=== PATIENT | male | born 1985 | race African-American/Black ===

== ENCOUNTER 2023-05-14 15:08 | Inpatient (IN) | payer BC, SELFPAY ==
--- NOTE | 2023-05-14 15:25 | CT_ITS ---
PROCEDURE INFORMATION: Exam: CT Abdomen And Pelvis With Contrast Exam date and time: 05/14/2023 6:49 PM Age: 37 years old Clinical indication: Generalized; Patient HX: Upper abdominal pain since Friday night. TECHNIQUE: Imaging protocol: Computed tomography of the abdomen and pelvis with contrast. Radiation optimization: All CT scans at this facility use at least one of these dose optimization techniques: automated exposure control; mA and/or kV adjustment per patient size (includes targeted exams where dose is matched to clinical indication); or iterative reconstruction. Contrast material: ISOVUE; Contrast volume: 75 ml; Contrast route: IV; Other contrast: Oral, gastrograffin, 30mL; COMPARISON: CR [id number] XR lumbar spine min 4V 02/07/2018 11:09 AM FINDINGS: Lungs: Lung bases are clear. Liver: Normal. No mass. Gallbladder and bile ducts: Gallbladder is distended with associated wall thickening associated severe right upper quadrant region edema and stranding centered around the gallbladder suggesting gallbladder origin. Pancreas: Normal. No ductal dilation. Spleen: Normal. No splenomegaly. Adrenal glands: Normal. No mass. Kidneys and ureters: Normal. No hydronephrosis. Stomach and bowel: Unremarkable. No obstruction. No mucosal thickening. Appendix: No evidence of appendicitis. Intraperitoneal space: Unremarkable. No free air. No significant fluid collection. Vasculature: Unremarkable. No abdominal aortic aneurysm. Lymph nodes: Unremarkable. No enlarged lymph nodes. Urinary bladder: Unremarkable as visualized. Reproductive: Unremarkable as visualized. Bones/joints: Unremarkable. No acute fracture. Soft tissues: Unremarkable. IMPRESSION: Distended gallbladder with wall thickening and right upper quadrant region inflammatory changes most consistent with severe acute cholecystitis in the proper clinical setting.
[2023-05-14 15:35] VITALS: BMI 38.7
[2023-05-14 15:38] VITALS: BP 144/84; PULSE 75; RESP 22; TEMP 36.7; O2SAT 97
[2023-05-14] MEDS: MORPHINE 2MG/ML SYRINGE 2 MG IV ×2 (16:14→18:34)
[2023-05-14] MEDS: 0.9 % SODIUM CHLORIDE 1000ML 1,000 ML 999 ML IV (16:14)
[2023-05-14 16:22] LABS: Basophils % 0.2 % (0.1-2.0); Eosinophils # 0.3 K/mm3 (0.0-0.4); Eosinophils % 1.9 % (0.1-12.0); Hematocrit 53.9 % (42.0-52.0); Hemoglobin 17.1 g/dL (14.1-18.0); Lymphocytes # 1.2 K/mm3 (0.7-4.5); Lymphocytes % 7.7 % (10-50); Mean Corpuscular HGB Conc 31.8 g/dL (31.8-35.4); Mean Corpuscular Hemoglobin 27.4 pg (27.0-31.2); Mean Corpuscular Volume 86.3 fl (80-94); Mean Platelet Volume 7.6 fl (7.4-10.4); Monocytes # 0.7 K/mm3 (0.1-1.0); Monocytes % 4.7 % (1.7-9.3); Neutrophils # 13.4 K/mm3 (1.8-7.8); Neutrophils % 85.5 % (37.0-80.0); Platelet Count 278 K/mm3 (142-424); Red Blood Count 6.24 M/mm3 (4.60-6.20); Red Cell Distribution Width 14.9 % (11.5-17.5); White Blood Count 15.7 K/mm3 (4.8-10.8)
[2023-05-14 16:28] LABS: Chloride 98 mmol/L (98-107); MANUAL DIFFERENTIAL MANUAL DIFFERENTIAL (MANUAL DIFF); Potassium 4.7 mmoL/L (3.5-5.1); Sodium 134 mmol/L (136-145)
[2023-05-14 16:30] LABS: Alanine Aminotransferase 44 U/L (12-78); Amylase 61 U/L (30-110); Blood Urea Nitrogen 14 mg/dl (9-20); Creatinine Clearance Estimated 152 mL/min (50-200); Estimated Glomerular Filt Rate 76 ml/min (>60); GFR (African American) 92 ML/MIN (>60)
[2023-05-14 16:31] LABS: Albumin Level 4.9 g/dl (3.5-5.0); Albumin/Globulin Ratio 1.3 (1.1-1.8); Alkaline Phosphatase 94 U/L (38-126); Anion Gap 8.7 mEq/L (5-15); Aspartate Amino Transferase 49 U/L (17-59); Bilirubin,Total 1.3 mg/dl (0.2-1.3); Calcium 10.4 mg/dl (8.4-10.2); Carbon Dioxide 32 mmol/L (22.0-30.0); Globulin 3.8 g/dL (1.3-3.2); Glucose 117 mg/dl (74-100); Total Protein,Serum 8.7 g/dl (6.3-8.2)
[2023-05-14 16:32] LABS: Lactic Acid 1.4 mmol/L (0.7-2.1)
[2023-05-14 16:53] LABS: Lipase 38 U/L (23-300)
--- NOTE | 2023-05-14 17:25 | P.HP_ITS ---
History of Present Illness *Admission Date: 05/14/23 *Reason for visit:: abdominal pain *History of present illness: Mr. Song is a 37yo male who presented to the office of [facility] today with abdominal pain that started on Friday. He did vomit and have diarrhea on Friday, but this resolved on Friday. He began getting pain in the epigastric area yesterday and it is so bad today he cannot stand upright. He states it hurts to breathe and he has been doubled over in pain most of today. He has been unable to eat. His WBC was elevated in the office and he was admitted for further evaluation and treatment. [facility] Disclaimer: The information contained in this section may have been updated after the patient was seen, as this information can be updated by other users. Medical History (Updated 05/14/23 @ 19:56 by Clinton Garcia MD) No significant past medical history Family History Family history of hypertension Mother Father Family history of diabetes mellitus type II Mother Father Social History Smoking Status: Never smoker alcohol intake: current substance use type: denies use current occupational status: employed Travel in the last 8 weeks: Inside the [place] housing: house Review of Systems Constitutional Constitutional: Reports fatigue, Denies headache(s) and Reports weakness Eyes Eyes: Denies blurry vision and Denies diplopia ENT Ears, Nose, Mouth, and Throat: Denies headache(s), Denies nasal congestion, Denies sore throat and Denies vertigo *Cardiovascular Cardiovascular: Denies chest pain, Denies dyspnea and Denies leg edema *Respiratory Respiratory: Denies cough and Denies dyspnea *Gastrointestinal Gastrointestinal: Reports abdominal pain (epigastric), Reports loose stools, Reports nausea and Reports vomiting *Genitourinary Genitourinary: Denies difficulty urinating and Denies dysuria *Musculoskeletal Musculoskeletal: Denies arthralgias and Denies myalgias *Neurologic Neurologic: Denies headache(s), Denies vertigo and Reports weakness Endocrine Endocrine: Reports fatigue Meds Home Medications and Allergies Home Medications Medication Instructions Recorded Confirmed Type No Known Home Medications 11/12/18 05/14/23 History New Prescriptions to Start Prescriptions: Allergies Allergy/AdvReac Type Severity Reaction Status Date / Time No Known Allergies Allergy Verified 05/14/23 15:29 Exam Data for Last 24 hours Vital signs and Labs for Last 24 Hours: Temp Pulse Resp BP Pulse Ox O2 Del Method 98.1 F 75 22 144/84 H 97 Room Air 05/14/23 15:38 05/14/23 15:38 05/14/23 15:38 05/14/23 15:38 05/14/23 15:38 05/14/23 17:15 Laboratory Results - last 24 hr 05/14/23 16:06: WBC 15.7 H, RBC 6.24 H, Hgb 17.1, Hct 53.9 H, MCV 86.3, MCH 27.4, MCHC 31.8, RDW 14.9, Plt Count 278, MPV 7.6, Neut % (Auto) 85.5 H, Lymph % (Auto) 7.7 L, [place] % (Auto) 4.7, Eos % (Auto) 1.9, Baso % (Auto) 0.2, Neut # (Auto) 13.4 H, Lymph # (Auto) 1.2, [place] # (Auto) 0.7, Eos # (Auto) 0.3, Baso # (Auto) 0.0, Sodium 134 L, Potassium 4.7, Chloride 98, Carbon Dioxide 32 H, Anion Gap 8.7, BUN 14, Creatinine 1.10, Estimated Creat Clear 152, Estimated GFR 76, Est GFR ( Amer) 92, Glucose 117 H, Lactate 1.4, Calcium 10.4 H, Total Bilirubin 1.3, AST 49, ALT 44, Alkaline Phosphatase 94, Total Protein 8.7 H, Albumin 4.9, Globulin 3.8 H, Albumin/Globulin Ratio 1.3, Amylase 61, Lipase 38 I & O for Last 24 hours: Intake & Output 05/12/23 05/13/23 05/14/23 05/15/23 11:59 11:59 11:59 11:59 Weight 254 lb 7 oz Constitutional Constitutional: moderate distress (appears to be in pain) *Routine HEENT Exam Head: Present normocephalic and atraumatic Eye: Present EOMI and PERRL ENT: Present mucous membranes dry *Routine Neck Exam Neck: Present supple and full ROM *Routine Respiratory Exam Respiratory: Present CTA bilaterally *Routine Cardiovascular Exam Cardiovascular: Present RRR *Routine Abdominal Exam Abdominal: Present soft, normoactive bowel sounds and tenderness (epigastric area) *Routine Rectal Exam Rectal:: deferred *Routine Genitalia Exam Genitalia:: deferred *Routine Extremities Exam Extremities: Absent cyanosis, clubbing or edema *Routine Skin Exam Skin: Present intact; Absent erythema *Routine Neurological Exam Neurological: Present alert and oriented X3 Assessment and Plan *Assessment and plan (1) Epigastric abdominal pain: Status: Acute Category: Medical Code(s): R10.13 - Epigastric pain (2) Leukocytosis: Status: Acute Category: Medical Code(s): D72.829 - Elevated white blood cell count, unspecified (3) Acute cholecystitis: Status: Acute Category: Medical Code(s): K81.0 - Acute cholecystitis Plan Patient has been started on morphine, zofran, and IVF's. A CT scan has been ordered. WBC is elevated. Will discuss further care with Dr. Garcia. Dr. Garcia entry - Saw patient in office and after admission to [facility] CT scan shows probable acute cholecystitis. Will keep NPO, start Zosyn, RUQ U/S ordered, consult general surgery in the morning.
[2023-05-14 17:44] LABS: Lymphocytes % 13 % (10-50); Monocytes % 5 % (2-9); Neutrophils % 82 % (42-76); Total Cells Counted 100
[2023-05-14 17:45] LABS: Platelet Estimate Normal; RBC Morphology Normal
--- NOTE | 2023-05-14 18:57 | PC.NURSE ---
NOTIFIED MD OF PTS ABD PAIN RATING IT 10/10. PER MARLY, OKAY TO GIVE PRN MORPHINE EARLY. PT CURRENTLY DOWN TO RAD. URINE SPECIMEN OBTAINED AND SENT TO LAB. PTS FAMILY AT BS, NO COMPLAINTS VOICED AT THIS TIME.
[2023-05-14] MEDS: IOPAMIDOL-370 (76%);100ML BOTTLE 75 ML IV (19:10)
[2023-05-14] MEDS: SODIUM CHLORIDE 0.9% 10ML SYR (RAD ONLY) 10 ML IV (19:12)
[2023-05-14] MEDS: DIATRIZOATE MEGLUMINE(GASTROGRAFIN) 66%-10% 120ML 20 ML PO (19:12)
[2023-05-14 20:00] VITALS: BP 135/75; PULSE 82; RESP 17; TEMP 36.8; O2SAT 98
--- NOTE | 2023-05-14 20:13 | PC.NURSE ---
called about this exam and told the nurse that we usually dont call u/s in for these and that we would have a tech here around 630 am and she said that would be fine to have the exam then.
[2023-05-14] MEDS: D5W/0.45% NaCl w/20mEq KCL 1,000 ML 125 ML IV (20:55)
[2023-05-14] MEDS: FAMOTIDINE 20MG TABLET 20 MG PO (20:55)
[2023-05-14] MEDS: PIPERACILLIN/TAZO 4.5 GM in 0.9 % SODIUM CHLORIDE 100 ML IV (20:56)
[2023-05-14] MEDS: MORPHINE 2MG/ML SYRINGE 4 MG IV (20:57)
[2023-05-15] VITALS (21 sets, daily range): BP systolic 115–152; BP diastolic 67–92; PULSE 69–109; RESP 14–23; TEMP 36.6–37.7; O2SAT 93–100; BMI 39.9
--- NOTE | 2023-05-15 | US_ITS ---
FINAL REPORT CLINICAL HISTORY: ruq pain -- recent CT COMPARISON: CT dated 05/14/2023 FINDINGS: Sonographic images of the right upper quadrant were obtained. Study is somewhat limited by large amount of bowel gas and the suggestion of some stranding or haziness in the right upper quadrant. The pancreas is partially obscured. There is fatty infiltration of the liver. Stones and sludge are present in the gallbladder. There is no evidence of biliary ductal dilatation.The common duct measures 4mm. Limited images of the right kidney are unremarkable. IMPRESSION: Fatty infiltration of the liver. Stones and sludge are present in the gallbladder without evidence of ductal dilatation. Reviewed, Interpreted and Dictated by Vasquez La MD Transcribed by Elvi Duran Authenticated and . [facility]
[2023-05-15] MEDS: PIPERACILLIN/TAZO 4.5 GM in 0.9 % SODIUM CHLORIDE 100 ML IV ×4 (01:18→20:06)
[2023-05-15] MEDS: MORPHINE 2MG/ML SYRINGE 4 MG IV ×5 (01:19→21:44)
[2023-05-15] MEDS: D5W/0.45% NaCl w/20mEq KCL 1,000 ML 125 ML IV ×2 (06:12→21:44)
--- NOTE | 2023-05-15 07:31 | EXP.SURG.CON ---
History of Present Illness *Admission Date: 05/14/23 *Reason for visit:: Acute cholecystitis *History of present illness: Patient is a 37-year-old male. He had presented to [facility] office on 05/14/2023 with abdominal pain that began on 05/10/2023. He had nausea and vomiting. He did initially have some loose stools which had resolved. Describes severe pain in the epigastrium which doubles him over. He had been unable to eat. He was admitted for inpatient management as he was found to have a leukocytosis on outpatient labs. Surgical consultation was obtained for acute cholecystitis. He had a CT scan of the abdomen and pelvis performed which revealed distended gallbladder with wall thickening and right upper quadrant region inflammatory changes most consistent with severe acute cholecystitis in the proper clinical setting. He has an ultrasound pending. He is on Zosyn. [facility] Disclaimer: The information contained in this section may have been updated after the patient was seen, as this information can be updated by other users. Medical History (Updated 05/14/23 @ 19:56 by Clinton Garcia MD) No significant past medical history Family History Family history of hypertension Mother Father Family history of diabetes mellitus type II Mother Father Social History Smoking Status: Never smoker alcohol intake: current substance use type: denies use current occupational status: employed Travel in the last 8 weeks: Inside the [facility] housing: house Review of Systems Constitutional Constitutional: Denies headache(s) and Reports weakness ENT Ears, Nose, Mouth, and Throat: Denies headache(s) and Denies vertigo *Neurologic Neurologic: Denies headache(s), Denies vertigo and Reports weakness Meds Home Medications and Allergies Home Medications Medication Instructions Recorded Confirmed Type No Known Home Medications 11/12/18 05/14/23 History New Prescriptions to Start Prescriptions: Allergies Allergy/AdvReac Type Severity Reaction Status Date / Time No Known Allergies Allergy Verified 05/14/23 15:29 Exam (Inpt) Vital signs and Labs for Last 24 Hours: Temp Pulse Resp BP Pulse Ox O2 Del Method 99.8 F H 88 16 136/73 96 Room Air 05/15/23 04:00 05/15/23 04:00 05/15/23 04:00 05/15/23 04:00 05/15/23 04:00 05/15/23 06:25 Laboratory Results - last 24 hr 05/14/23 16:06: WBC 15.7 H, RBC 6.24 H, Hgb 17.1, Hct 53.9 H, MCV 86.3, MCH 27.4, MCHC 31.8, RDW 14.9, Plt Count 278, MPV 7.6, Neut % (Auto) 85.5 H, Lymph % (Auto) 7.7 L, [place] % (Auto) 4.7, Eos % (Auto) 1.9, Baso % (Auto) 0.2, Neut # (Auto) 13.4 H, Lymph # (Auto) 1.2, [place] # (Auto) 0.7, Eos # (Auto) 0.3, Baso # (Auto) 0.0, Total Counted 100, Neutrophils % (Manual) 82 H, Lymphocytes % (Manual) 13, Monocytes % (Manual) 5, Platelet Estimate Normal, RBC Morphology Normal, Sodium 134 L, Potassium 4.7, Chloride 98, Carbon Dioxide 32 H, Anion Gap 8.7, BUN 14, Creatinine 1.10, Estimated Creat Clear 152, Estimated GFR 76, Est GFR ( Amer) 92, Glucose 117 H, Lactate 1.4, Calcium 10.4 H, Total Bilirubin 1.3, AST 49, ALT 44, Alkaline Phosphatase 94, Total Protein 8.7 H, Albumin 4.9, Globulin 3.8 H, Albumin/Globulin Ratio 1.3, Amylase 61, Lipase 38 I & O for Labs for Last 24 Hours: Intake & Output 05/12/23 05/13/23 05/14/23 05/15/23 11:59 11:59 11:59 11:59 Intake Total 30 / 30 Output Total 0 / 0 Balance / Weight 263 lb 14.4 oz Constitutional: no acute distress Head: Present normocephalic Respiratory: Present CTA bilaterally Cardiac: Present Reg Rate and Rhythm GI: Present soft, tenderness and Mejia's sign Comments:: He has tenderness with guarding in the epigastrium and right upper quadrant Rectal (male): Present deferred Results Labs 05/14/23 16:06 05/14/23 16:06 Labs: Laboratory Results - last 24 hr 05/14/23 16:06: WBC 15.7 H, RBC 6.24 H, Hgb 17.1, Hct 53.9 H, MCV 86.3, MCH 27.4, MCHC 31.8, RDW 14.9, Plt Count 278, MPV 7.6, Neut % (Auto) 85.5 H, Lymph % (Auto) 7.7 L, [place] % (Auto) 4.7, Eos % (Auto) 1.9, Baso % (Auto) 0.2, Neut # (Auto) 13.4 H, Lymph # (Auto) 1.2, [place] # (Auto) 0.7, Eos # (Auto) 0.3, Baso # (Auto) 0.0, Total Counted 100, Neutrophils % (Manual) 82 H, Lymphocytes % (Manual) 13, Monocytes % (Manual) 5, Platelet Estimate Normal, RBC Morphology Normal, Sodium 134 L, Potassium 4.7, Chloride 98, Carbon Dioxide 32 H, Anion Gap 8.7, BUN 14, Creatinine 1.10, Estimated Creat Clear 152, Estimated GFR 76, Est GFR ( Amer) 92, Glucose 117 H, Lactate 1.4, Calcium 10.4 H, Total Bilirubin 1.3, AST 49, ALT 44, Alkaline Phosphatase 94, Total Protein 8.7 H, Albumin 4.9, Globulin 3.8 H, Albumin/Globulin Ratio 1.3, Amylase 61, Lipase 38 Assessment and Plan *Assessment and plan (1) Acute cholecystitis: Status: Acute Category: Medical Code(s): K81.0 - Acute cholecystitis Plan Patient has findings consistent with significant acute cholecystitis. I explained him the nature of the condition. Discussed options with him. Arrangements will be made for expeditious cholecystectomy. Plan for laparoscopic possibly open cholecystectomy. I explained to him the nature and details of the proposed procedure along with the associated risks and expected outcome. He understands and agrees to proceed.
[2023-05-15] MEDS: FAMOTIDINE 20MG TABLET 20 MG PO ×2 (08:15→20:06)
--- NOTE | 2023-05-15 08:23 | P.PN_ITS ---
Subjective *Date: 05/15/23 *Time: 08:56 Interval history: Patient was able to rest at intervals after getting pain medication. He is still having a lot of epigastric and RUQ pain today. CT shows severe acute cholecystitis. Medical Exam Vital signs and Labs for Last 24 Hours: Vital Signs Temp Pulse Resp BP Pulse Ox O2 Del Method 05/15/23 07:50 97.9 F 69 23 122/76 97 Room Air 05/15/23 06:25 Room Air 05/15/23 05:00 Room Air 05/15/23 04:00 99.8 F H 88 16 136/73 96 Room Air 05/15/23 03:00 Room Air 05/15/23 00:59 Room Air 05/14/23 23:00 Room Air 05/14/23 21:00 Room Air 05/15/23 00:00 98.6 F 95 H 16 145/88 H 100 Room Air 05/14/23 20:00 98.2 F 82 17 135/75 98 Room Air 05/14/23 18:41 Room Air 05/14/23 17:15 Room Air 05/14/23 17:00 Room Air 05/14/23 15:38 98.1 F 75 22 144/84 H 97 Room Air Intake and Output 05/14/23 05/15/23 05/15/23 19:59 03:59 11:59 Intake Total 0 / 30 30 / 30 0 / 30 Output Total 0 / 0 0 / 0 Balance 0 / 30 30 / 30 0 / 30 Intake: Intake, Oral Amount 0 / 30 30 / 30 0 / 30 Output: Output, Urine Amount 0 / 0 0 / 0 Other: Number of Voids 2 Number of Unmeasured Voids 1 1 Weight 254 lb 7 oz 263 lb 14.4 oz Patient Weight 05/15/23 11:59 Weight 263 lb 14.4 oz Laboratory Results - last 24 hr 05/14/23 16:06: WBC 15.7 H, RBC 6.24 H, Hgb 17.1, Hct 53.9 H, MCV 86.3, MCH 27.4, MCHC 31.8, RDW 14.9, Plt Count 278, MPV 7.6, Neut % (Auto) 85.5 H, Lymph % (Auto) 7.7 L, [place] % (Auto) 4.7, Eos % (Auto) 1.9, Baso % (Auto) 0.2, Neut # (Auto) 13.4 H, Lymph # (Auto) 1.2, [place] # (Auto) 0.7, Eos # (Auto) 0.3, Baso # (Auto) 0.0, Total Counted 100, Neutrophils % (Manual) 82 H, Lymphocytes % (Manual) 13, Monocytes % (Manual) 5, Platelet Estimate Normal, RBC Morphology Normal, Sodium 134 L, Potassium 4.7, Chloride 98, Carbon Dioxide 32 H, Anion Gap 8.7, BUN 14, Creatinine 1.10, Estimated Creat Clear 152, Estimated GFR 76, Est GFR ( Amer) 92, Glucose 117 H, Lactate 1.4, Calcium 10.4 H, Total Bilirubin 1.3, AST 49, ALT 44, Alkaline Phosphatase 94, Total Protein 8.7 H, Albumin 4.9, Globulin 3.8 H, Albumin/Globulin Ratio 1.3, Amylase 61, Lipase 38 I & O for Labs for Last 24 Hours: Intake & Output 05/12/23 05/13/23 05/14/23 05/15/23 11:59 11:59 11:59 11:59 Intake Total Output Total 0 / 0 Balance Weight 263 lb 14.4 oz Constitutional: Present mild distress Respiratory: Present CTA bilaterally Cardiac: Present Reg Rate and Rhythm GI: Present soft, tenderness (epigastric area and RUQ), guarding (RUQ) and normal bowel sounds; Absent distention Extremities: Absent edema, clubbing or cyanosis Skin: Present intact Neuro: Present alert and awake Assessment and Plan *Assessment and plan (1) Acute cholecystitis: Status: Acute Category: Medical Code(s): K81.0 - Acute cholecystitis (2) Leukocytosis: Status: Acute Category: Medical Code(s): D72.829 - Elevated white blood cell count, unspecified (3) Epigastric abdominal pain: Status: Acute Category: Medical Code(s): R10.13 - Epigastric pain Plan Dr. Vila has seen the patient. Will keep NPO, continue Zosyn, and get a RUQ U/S. Will likely have cholecystectomy today. Dr. Garcia entry - Saw patient, agree with above note.
[2023-05-15 10:09] LABS: Basophils % 0.1 % (0.1-2.0); Eosinophils # 0.1 K/mm3 (0.0-0.4); Eosinophils % 0.6 % (0.1-12.0); Hematocrit 49.7 % (42.0-52.0); Hemoglobin 16.1 g/dL (14.1-18.0); Lymphocytes # 1.5 K/mm3 (0.7-4.5); Lymphocytes % 9.9 % (10-50); Mean Corpuscular HGB Conc 32.5 g/dL (31.8-35.4); Mean Corpuscular Hemoglobin 27.9 pg (27.0-31.2); Mean Corpuscular Volume 85.8 fl (80-94); Mean Platelet Volume 7.3 fl (7.4-10.4); Monocytes # 0.9 K/mm3 (0.1-1.0); Monocytes % 5.6 % (1.7-9.3); Neutrophils % 83.8 % (37.0-80.0); Platelet Count 232 K/mm3 (142-424); Red Blood Count 5.79 M/mm3 (4.60-6.20); Red Cell Distribution Width 14.8 % (11.5-17.5); White Blood Count 15.6 K/mm3 (4.8-10.8)
[2023-05-15 10:13] LABS: MANUAL DIFFERENTIAL MANUAL DIFFERENTIAL (MANUAL DIFF)
[2023-05-15 10:20] LABS: Alanine Aminotransferase 52 U/L (12-78); Albumin/Globulin Ratio 1.1 (1.1-1.8); Alkaline Phosphatase 94 U/L (38-126); Anion Gap 10.5 mEq/L (5-15); Aspartate Amino Transferase 50 U/L (17-59); Bilirubin,Total 2.5 mg/dl (0.2-1.3); Blood Urea Nitrogen 12 mg/dl (9-20); Calcium 8.9 mg/dl (8.4-10.2); Carbon Dioxide 29 mmol/L (22.0-30.0); Chloride 100 mmol/L (98-107); Creatinine Clearance Estimated 144 mL/min (50-200); Estimated Glomerular Filt Rate 69 ml/min (>60); GFR (African American) 83 ML/MIN (>60); Globulin 3.5 g/dL (1.3-3.2); Glucose 111 mg/dl (74-100); Potassium 4.5 mmoL/L (3.5-5.1); Sodium 135 mmol/L (136-145); Total Protein,Serum 7.5 g/dl (6.3-8.2)
[2023-05-15 11:06] LABS: Lymphocytes % 10 % (10-50); Monocytes % 7 % (2-9); Neutrophils % 83 % (42-76); Total Cells Counted 100
[2023-05-15 11:08] LABS: Platelet Estimate Normal; RBC Morphology Normal
--- NOTE | 2023-05-15 12:31 | EXP.ANES.CKL ---
[facility] Disclaimer: The information contained in this section may have been updated after the patient was seen, as this information can be updated by other users. Medical History (Updated 05/14/23 @ 19:56 by Clinton Garcia MD) No significant past medical history Family History Family history of hypertension Mother Father Family history of diabetes mellitus type II Mother Father Social History Smoking Status: Never smoker alcohol intake: current substance use type: denies use current occupational status: employed Travel in the last 8 weeks: Inside the [place] housing: house [facility] Anesthesia Checklist Patient Identification Patient Identification: Arm Band, Family () and Verbal (Name & ) Structural Data Admitted From: Inpatient (RM [id number]) Planned Operative Procedure/s: Lap Nette Consent for Planned Operative Procedure(s) Verified: Yes Verified Documents: Surgical Consent and History and Physical NPO Status Verified Time NPO: 07:00 Chart Verification Results Verified: CBC and BMP Additional verifications Patient : No Anesthesia Reactions: No Cardiovascular Assessment Heart Sounds: S1 & S2 Pulse Rhythm: Irregular Peripheral Edema: No Airway Assessment Mallampati Score:: Class II C-Spine Mobility Assessed: Yes (FROM) TMJ Mobility Assessed: Yes Dentition: Good Dentition (Nothing loose per pt.) Neurological Assessment Level of Consciousness: Awake, Alert, Appropriate and Follows Commands Hx Seizures: No Numbness or tingling in extremities: No Anesthesia Plan Anesthesia Risk discussed: Yes Anesthesia Plan: Verified ASA Class: III Anesthesia Type: General
[2023-05-15] MEDS: LIDOCAINE 1% 20ML MDV 20 ML (12:52)
[2023-05-15] MEDS: ROPIVACAINE 0.5% 30ML VIAL 150 MG (12:52)
[2023-05-15] MEDS: CEFAZOLIN 1GM VIAL 2 GM (13:00)
[2023-05-15] MEDS: 0.9 % SODIUM CHLORIDE 100 ML IV (13:00)
--- NOTE | 2023-05-15 15:22 | XR_ITS ---
FINAL REPORT CLINICAL HISTORY: CHOLANGIOGRAM IN OR ft: 1:16 62.75 mGy FINDINGS: FLUOROSCOPY LESS THAN 1 HOUR HISTORY: Intraoperative cholangiogram FINDINGS: Fluoroscopic guidance was provided for intraoperative cholangiogram injection. Three spot films were obtained. 1 minute 16 seconds seconds of fluoroscopy time were used. Radiation measured as 62.75 mGy. IMPRESSION: As above. Reviewed, Interpreted and Dictated by Vasquez La MD Transcribed by Elvi Duran Authenticated and [facility]
--- NOTE | 2023-05-15 16:44 | EXP.OP.NOTE ---
Date of procedure: 05/15/23 Pre-op Diagnosis:: Acute cholecystitis Post-op Diagnosis:: Severe acute necrotizing cholecystitis Procedure performed:: Laparoscopic cholecystectomy with intraoperative cholangiogram Surgeon:: Jay Vila MD Anesthesia: FÁTIMA Estimated blood loss (mL): 75 Clinical Note:: Patient is a 37-year-old male. He had presented to [facility] office on 05/14/2023 with abdominal pain that began on 05/10/2023. He had nausea and vomiting. He did initially have some loose stools which had resolved. Describes severe pain in the epigastrium which doubles him over. He had been unable to eat. He was admitted for inpatient management as he was found to have a leukocytosis on outpatient labs. Surgical consultation was obtained for acute cholecystitis. He had a CT scan of the abdomen and pelvis performed which revealed distended gallbladder with wall thickening and right upper quadrant region inflammatory changes most consistent with severe acute cholecystitis in the proper clinical setting. He was started on Zosyn. Surgical consultation was obtained. Patient had findings clinically of significant acute cholecystitis. He did undergo gallbladder ultrasound which revealed fatty infiltration of liver. Stones and sludge are present in the gallbladder without evidence of ductal dilatation. Options were discussed with the patient. Plan was made to proceed with relatively urgent laparoscopic possibly open cholecystectomy. Of note, on the morning of his planned surgery the bilirubin did increase to 2.5 with remaining liver function test normal. Ultrasound showed no evidence of any ductal dilatation. This was felt to be likely secondary to gallbladder distention and inflammation and not common duct issue. Operative findings:: Patient had a severe necrotizing gangrenous acute cholecystitis essentially with virtually phlegmonous reaction in the right upper quadrant. Gallbladder neck appeared to be somewhat twisted. There was full-thickness necrosis. Due to the severely distorted anatomy intraoperative cholangiogram was performed which preliminarily did not show any definite common hepatic or common bile duct obstruction. However interestingly the cystic duct was not clearly visualized. Operative note:: Patient was taken to the operating room. He was given preoperative intravenous antibiotics in addition to the ongoing Zosyn for treatment for acute cholecystitis. In the operating room he was placed in a supine position. General anesthesia was induced via endotracheal tube. His abdomen was prepped and draped in the standard surgical fashion. Subumbilical skin incision was made and while performing abdominal wall lift Veress needle was inserted. CO2 pneumoperitoneum was achieved to 15 mmHg. 11 mm optical trocar was inserted at the umbilicus. Intraperitoneal contents were visualized. He was positioned in reverse Trendelenburg and left side down. A couple of 5 mm trocars were inserted in the right upper abdomen. 10 mm trocar was inserted in the epigastrium. Visualization of the gallbladder was not possible initially as the gallbladder was completely obscured with omental adhesions. There was an intense inflammatory phlegmonous process in the right upper quadrant. Omentum was swept inferiorly and the fundus of the gallbladder was identified. There was evidence of severe acute cholecystitis with patchy necrosis. Gallbladder was grasped and retracted anteriorly. Extremely prolonged dissection was carried out with dissection carried down to the neck of the gallbladder. There were areas of complete full-thickness virtually liquefied necrosis. There was some unavoidable spillage of bile from the body of the gallbladder during retraction due to the full-thickness necrosis. This was suctioned free. Was was closed with a PDS Endoloop. Extremely prolonged dissection was carried out the neck of the gallbladder as delineation of the anatomy was virtually impossible initially. It appeared as though the neck of the gallbladder was twisted and somewhat corkscrew did with full-thickness necrosis. Ultimately what appeared to be the cystic duct was identified. Prolonged thorough careful dissection was carried out isolating this. Decision was made to perform intraoperative cholangiogram. The duct, once isolated, was clipped proximal to the gallbladder. Taut cholangiocatheter introducer was inserted through a 2 to 3 mm incision in the right upper abdomen. Cholangiocatheter was inserted and flushed. Small ductotomy was made within the cystic duct. Catheter was manipulated into the cystic duct and secured with a Hemoclip. Intraoperative cholangiogram was then performed using fluoroscopy. There appeared to be good filling of the common hepatic duct proximally. There was a questionable stone in the proximal common hepatic duct but this appeared to clear. There was also good feeling without filling defect or obstruction of the common bile duct with filling into the duodenum. Interestingly the cystic duct was able to be clearly identified however it was felt that the catheter was in the cystic duct as both the common hepatic duct and and common bile duct filled. Decision was made to proceed with cholecystectomy. Patient was repositioned. Cholangiocatheter was removed. Duct was multiply clipped and sharply divided. Gallbladder was dissected free from the liver in a retrograde fashion using a combination of SANDY ultrasonic harmonic jean claude and laparoscopic electrocautery. Gallbladder was placed within an Endo Catch retrieval device and removed from the abdomen via the umbilical trocar site which required some extension of the fascial incision. Gallbladder fossa and perihepatic space was then thoroughly irrigated with several liters and aspirated until clear. Hemostasis was achieved of the gallbladder fossa with laparoscopic use of electrocautery. A #10 CELESTINE drain was placed into the abdomen and the subhepatic space along the gallbladder fossa to exit through the right upper lateral abdominal trocar site where it was secured with a 3-0 nylon horizontal mattress suture. Trocars were removed and CO2 pneumoperitoneum was evacuated. Fascia at the umbilicus was closed with a couple of interrupted 0 Vicryl sutures. Local anesthetic was infiltrated. Skin incisions were closed with 4-0 Monocryl. A couple of 4-0 plain gut sutures were placed in the right upper 5 mm trocar site and at the cholangiocatheter site. Dermabond and dressings were applied. Condition: stable Disposition: PACU Complications:: None immediately apparent at the time of this dictation.
--- NOTE | 2023-05-15 16:52 | PC.NURSE ---
Pt. received one dose of morphine on my shift and has been in surgery for several hours.
--- NOTE | 2023-05-15 16:55 | SUR.OPER ---
Aimee Ramos RN updated family at 1620.
--- NOTE | 2023-05-15 16:58 | SUR.PHASEI ---
F/C DC'd per v/o from Windy Mcclain CRNA. 150 ml of drk ezio urine noted.
--- NOTE | 2023-05-15 17:06 | P.PNANES_ITS ---
[facility] Anesthesia Record Part I Anesthesia Record I Intake, IV Amount: 2,700 Hydration: Adequate Estimated blood loss (mL): 100 Urine output (mL): 300 Blood Products used (#): none Blood Pressure: 152/92 SaO2: 95 Pulse Rate: 100 Airway Patency: Patent Respiratory Rate: 22 Temperature: 98.5 F Patient is:: Drowsy and Stable Stable to PACU at:: 16:45
[2023-05-16] VITALS (7 sets, daily range): BP systolic 113–147; BP diastolic 71–82; PULSE 71–102; RESP 16–18; TEMP 36.6–37.4; O2SAT 93–100; BMI 39.7
[2023-05-16] MEDS: PIPERACILLIN/TAZO 4.5 GM in 0.9 % SODIUM CHLORIDE 100 ML IV ×4 (01:57→20:02)
[2023-05-16] MEDS: MORPHINE 2MG/ML SYRINGE 4 MG IV ×3 (02:21→20:01)
--- NOTE | 2023-05-16 04:18 | PC.NURSE ---
S/P LAP CRISTIN 05/15/23. HAS A CELESTINE DRAIN, 130ML SEROSANGUINOUS DRAINAGE EMPTIED TOTAL. CELESTINE INSERTION SITE LEAKING, REINFORCED WITH FOLDED 4X4s. 3 LAP INCISIONS NOTED, DRSGS C/D/I. HAS BEEN MEDICATED TWICE THIS SHIFT FOR ABD PAIN 09/30 . ABDOMEN MILDLY DISTENDED. HYPOACTIVE BOWEL SOUNDS PRESENT. HAS NOT PASSED GAS OR HAD A BM YET. ENCOURAGED TO USE INCENTIVE SPIROMETER.
[2023-05-16] MEDS: D5W/0.45% NaCl w/20mEq KCL 1,000 ML 125 ML IV ×3 (06:21→15:51)
--- NOTE | 2023-05-16 06:24 | EXP.SURG.PN ---
Subjective Narrative: Patient complains of abdominal soreness . Overall feels better. He does feel the urge to have a bowel movement but is worried about straining. Exam Data for Last 24 hours Vital signs and Labs for Last 24 Hours: Temp Pulse Resp BP Pulse Ox O2 Del Method 99.3 F 91 H 16 136/82 95 Room Air 05/16/23 04:00 05/16/23 04:00 05/16/23 04:00 05/16/23 04:00 05/16/23 04:00 05/16/23 05:00 Laboratory Results - last 24 hr 05/15/23 09:37: WBC 15.6 H, RBC 5.79, Hgb 16.1, Hct 49.7, MCV 85.8, MCH 27.9, MCHC 32.5, RDW 14.8, Plt Count 232, MPV 7.3 L, Neut % (Auto) 83.8 H, Lymph % (Auto) 9.9 L, [place] % (Auto) 5.6, Eos % (Auto) 0.6, Baso % (Auto) 0.1, Neut # (Auto) 13.0 H, Lymph # (Auto) 1.5, [place] # (Auto) 0.9, Eos # (Auto) 0.1, Baso # (Auto) 0.0, Total Counted 100, Neutrophils % (Manual) 83 H, Lymphocytes % (Manual) 10, Monocytes % (Manual) 7, Platelet Estimate Normal, RBC Morphology Normal, Sodium 135 L, Potassium 4.5, Chloride 100, Carbon Dioxide 29, Anion Gap 10.5, BUN 12, Creatinine 1.20, Estimated Creat Clear 144, Estimated GFR 69, Est GFR ( Amer) 83, Glucose 111 H, Calcium 8.9, Total Bilirubin 2.5 H, AST 50, ALT 52, Alkaline Phosphatase 94, Total Protein 7.5, Albumin 4.0 D, Globulin 3.5 H, Albumin/Globulin Ratio 1.1 I & O for Last 24 hours: Intake & Output 05/13/23 05/14/23 05/15/23 05/16/23 11:59 11:59 11:59 11:59 Intake Total 130 / 130 4270 / 4270 Output Total 0 / 0 306 / 306 Balance 130 / 130 3964 / 3964 Weight 263 lb 14.4 oz 262 lb 6.4 oz *Routine Abdominal Exam Abdominal: Present soft Comments: CELESTINE drain with serous sanguinous output. Nonbilious. Progress Note: A&P Assessment and plan (1) Acute cholecystitis: Status: Acute Assessment and plan: Patient is postoperative day #1 after laparoscopic cholecystectomy with intraoperative cholangiogram for severe necrotizing acute cholecystitis. Labs are pending. (2) Leukocytosis: Status: Acute (3) Epigastric abdominal pain: Status: Acute
[2023-05-16 06:52] LABS: Basophils % 0.1 % (0.1-2.0); Eosinophils % 0.3 % (0.1-12.0); Hematocrit 39.7 % (42.0-52.0); Lymphocytes # 2.3 K/mm3 (0.7-4.5); Lymphocytes % 22.1 % (10-50); Mean Corpuscular HGB Conc 34.8 g/dL (31.8-35.4); Mean Corpuscular Hemoglobin 30.5 pg (27.0-31.2); Mean Corpuscular Volume 87.6 fl (80-94); Monocytes # 0.8 K/mm3 (0.1-1.0); Monocytes % 7.2 % (1.7-9.3); Neutrophils # 7.4 K/mm3 (1.8-7.8); Neutrophils % 70.3 % (37.0-80.0); Platelet Count 213 K/mm3 (142-424); Red Blood Count 4.53 M/mm3 (4.60-6.20); Red Cell Distribution Width 14.9 % (11.5-17.5); White Blood Count 10.6 K/mm3 (4.8-10.8)
[2023-05-16 06:58] LABS: Hemoglobin 13.8 g/dL (14.1-18.0)
[2023-05-16 07:02] LABS: Chloride 103 mmol/L (98-107); Potassium 3.8 mmoL/L (3.5-5.1); Sodium 135 mmol/L (136-145)
[2023-05-16 07:04] LABS: Blood Urea Nitrogen 12 mg/dl (9-20)
[2023-05-16 07:05] LABS: Alanine Aminotransferase 75 U/L (12-78); Albumin Level 3.2 g/dl (3.5-5.0); Alkaline Phosphatase 108 U/L (38-126); Anion Gap 3.8 mEq/L (5-15); Aspartate Amino Transferase 75 U/L (17-59); Bilirubin,Total 2.4 mg/dl (0.2-1.3); Carbon Dioxide 32 mmol/L (22.0-30.0); Creatinine Clearance Estimated 132 mL/min (50-200); Estimated Glomerular Filt Rate 62 ml/min (>60); GFR (African American) 76 ML/MIN (>60); Globulin 3.2 g/dL (1.3-3.2); Glucose 118 mg/dl (74-100); Total Protein,Serum 6.4 g/dl (6.3-8.2)
--- NOTE | 2023-05-16 07:29 | EXP.ANES.II ---
[facility] Anesthesia Record Part II Anesthesia Record Part II Discharge Time: 17:15 Destination: Medical Surgical Department PACU nurse assessment reviewed?: Yes Patient Condition:: Good Anesthesia Complications:: None Swallowing reflex intact?: Yes Airway Patency: Patent Cyanosis?: No Blood Pressure: 134/71 SaO2: 95 Respiratory Rate: 18 Pulse Rate: 98 Temperature: 97.9 F Mental Status: Alert & Oriented Pain level:: 0 Nausea and/or vomitting:: None Intake, IV Amount: 0 Hydration: Adequate
--- NOTE | 2023-05-16 08:40 | EXP.ACUTE.PN ---
Subjective *Date: 05/16/23 *Time: 08:40 Interval history: Patient feels better this morning, tolerating clear liquids. Medical Exam Vital signs and Labs for Last 24 Hours: Vital Signs Temp Pulse Pulse Resp BP BP Pulse Ox 05/16/23 08:00 99 F 78 16 119/73 100 05/16/23 06:34 05/16/23 04:00 99.3 F 91 H 16 136/82 95 05/16/23 05:00 05/16/23 03:00 05/16/23 01:00 05/16/23 00:45 98.1 F 102 H 16 113/79 93 L 05/15/23 23:45 98.4 F 100 H 16 115/73 95 05/15/23 23:00 05/15/23 21:00 05/15/23 22:45 98.3 F 105 H 16 118/75 95 05/15/23 22:45 98.3 F 105 H 16 118/75 95 05/15/23 20:00 93 L 05/15/23 21:45 98.1 F 109 H 16 119/67 94 L 05/15/23 20:45 99 F 105 H 16 120/69 94 L 05/15/23 20:15 99 F 104 H 16 115/70 93 L 05/15/23 19:45 98.0 F 94 H 16 121/67 99 05/15/23 19:15 99.5 F 94 H 16 124/71 96 05/15/23 18:15 98.3 F 96 H 16 124/67 97 05/15/23 18:00 98.3 F 98 H 16 120/69 100 05/15/23 17:43 05/15/23 17:38 98.3 F 94 H 16 137/70 96 05/15/23 17:15 97.9 F 98 H 18 134/71 95 05/15/23 17:05 98 H 17 143/75 H 95 05/15/23 16:55 97 H 16 129/80 94 L 05/15/23 16:45 98.5 F 98 H 14 152/92 H 95 05/15/23 11:24 98.4 F 94 H 21 140/91 H 95 05/15/23 10:20 05/15/23 08:56 05/16/23 07:32 18 05/15/23 17:09 98.5 F 100 H 22 152/92 H O2 Del Method 05/16/23 08:00 Room Air 05/16/23 06:34 Room Air 05/16/23 04:00 Room Air 05/16/23 05:00 Room Air 05/16/23 03:00 Room Air 05/16/23 01:00 Room Air 05/16/23 00:45 Room Air 05/15/23 23:45 05/15/23 23:00 Room Air 05/15/23 21:00 Room Air 05/15/23 22:45 05/15/23 22:45 05/15/23 20:00 Room Air 05/15/23 21:45 Room Air 05/15/23 20:45 05/15/23 20:15 05/15/23 19:45 05/15/23 19:15 Room Air 05/15/23 18:15 Room Air 05/15/23 18:00 Room Air 05/15/23 17:43 Room Air 05/15/23 17:38 Room Air 05/15/23 17:15 Room Air 05/15/23 17:05 Room Air 05/15/23 16:55 Room Air 05/15/23 16:45 Room Air 05/15/23 11:24 Room Air 05/15/23 10:20 Room Air 05/15/23 08:56 Room Air 05/16/23 07:32 05/15/23 17:09 Intake and Output 05/15/23 05/16/23 05/16/23 23:59 07:59 15:59 Intake Total 4170 / 4300 1171 / 1291 120 / 1291 Output Total 176 / 176 170 / 170 Balance 3994 / 4124 1001 / 1121 120 / 1121 Intake: Intake, Oral Amount 220 / 250 120 / 120 Intake, Total IV Amount 3950 / 4050 1171 / 1171 D5W/0.45% NaCl w/20mEq KCL 1, 1150 / 1150 1071 / 1071 000 ml @ 125 mls/hr IV .Q8H MARGARITO Rx#:[id number] Piperacillin/Tazo 4.5 gm In 0.9 100 / 200 100 / 100 % Sodium Chloride 100 ml @ 200 mls/hr IV Q6H MARGARITO Rx#:[id number] Output: Output, Urine Amount 0 / 0 Output, Urine Amount (Catheter) 150 / 150 Plummer 150 / 150 Output, Drainage Amount 170 / 170 RUQ 170 / 170 Other: Number of Unmeasured Voids 1 1 Number of Bowel Movements 1 Weight 262 lb 6.4 oz Patient Weight 05/16/23 23:59 Weight 262 lb 6.4 oz Laboratory Results - last 24 hr 05/15/23 09:37: WBC 15.6 H, RBC 5.79, Hgb 16.1, Hct 49.7, MCV 85.8, MCH 27.9, MCHC 32.5, RDW 14.8, Plt Count 232, MPV 7.3 L, Neut % (Auto) 83.8 H, Lymph % (Auto) 9.9 L, [place] % (Auto) 5.6, Eos % (Auto) 0.6, Baso % (Auto) 0.1, Neut # (Auto) 13.0 H, Lymph # (Auto) 1.5, [place] # (Auto) 0.9, Eos # (Auto) 0.1, Baso # (Auto) 0.0, Total Counted 100, Neutrophils % (Manual) 83 H, Lymphocytes % (Manual) 10, Monocytes % (Manual) 7, Platelet Estimate Normal, RBC Morphology Normal, Sodium 135 L, Potassium 4.5, Chloride 100, Carbon Dioxide 29, Anion Gap 10.5, BUN 12, Creatinine 1.20, Estimated Creat Clear 144, Estimated GFR 69, Est GFR ( Amer) 83, Glucose 111 H, Calcium 8.9, Total Bilirubin 2.5 H, AST 50, ALT 52, Alkaline Phosphatase 94, Total Protein 7.5, Albumin 4.0 D, Globulin 3.5 H, Albumin/Globulin Ratio 1.1 05/16/23 05:54: WBC 10.6 D, RBC 4.53 L, Hgb 13.8 L D, Hct 39.7 L, MCV 87.6, MCH 30.5, MCHC 34.8, RDW 14.9, Plt Count 213, MPV 8.0, Neut % (Auto) 70.3, Lymph % (Auto) 22.1, [place] % (Auto) 7.2, Eos % (Auto) 0.3, Baso % (Auto) 0.1, Neut # (Auto) 7.4, Lymph # (Auto) 2.3, [place] # (Auto) 0.8, Eos # (Auto) 0.0, Baso # (Auto) 0.0, Sodium 135 L, Potassium 3.8, Chloride 103, Carbon Dioxide 32 H, Anion Gap 3.8 L, BUN 12, Creatinine 1.30 H, Estimated Creat Clear 132, Estimated GFR 62, Est GFR ( Amer) 76, Glucose 118 H, Calcium 8.0 L, Total Bilirubin 2.4 H, AST 75 H D, ALT 75 D, Alkaline Phosphatase 108, Total Protein 6.4, Albumin 3.2 L D, Globulin 3.2, Albumin/Globulin Ratio 1.0 L I & O for Labs for Last 24 Hours: Intake & Output 05/13/23 05/14/23 05/15/23 05/16/23 23:59 23:59 23:59 23:59 Intake Total 0 4300 / 4300 1291 / 1291 Output Total 176 / 176 170 / 170 Balance 4124 / 4124 1121 / 1121 Weight 254 lb 7 oz 263 lb 14.4 oz 262 lb 6.4 oz Constitutional: Present no acute distress Respiratory: Present CTA bilaterally Cardiac: Present Reg Rate and Rhythm GI: Present soft and normal bowel sounds; Absent distention Comments:: CELESTINE drain in place Extremities: Absent edema, clubbing or cyanosis Skin: Present intact Neuro: Present alert and awake Assessment and Plan *Assessment and plan (1) Acute cholecystitis: Status: Acute Category: Medical Code(s): K81.0 - Acute cholecystitis (2) Leukocytosis: Status: Acute Category: Medical Code(s): D72.829 - Elevated white blood cell count, unspecified (3) Epigastric abdominal pain: Status: Acute Category: Medical Code(s): R10.13 - Epigastric pain (4) S/P cholecystectomy: Status: Acute Category: Surgical Code(s): Z90.49 - Acquired absence of other specified parts of digestive tract Plan Continue current care.
[2023-05-16] MEDS: FAMOTIDINE 20MG TABLET 20 MG PO ×2 (09:15→20:02)
--- NOTE | 2023-05-16 15:54 | PC.NURSE ---
patient has had an uneventful shift, VSS, remains on RA. Patient stated he has minor pain at the incision sight when changing positions but no ABD pain and has not requested pain medication during my shift.
--- NOTE | 2023-05-16 17:10 | PC.NURSE ---
30ml of serosanguineous fluid emptied from CELESTINE drain at 1700
[2023-05-16] MEDS: ACETAMINOPHEN 325MG TAB 650 MG PO (17:40)
[2023-05-17] VITALS: BP 121/72; PULSE 77; RESP 18; TEMP 36.7; O2SAT 97
[2023-05-17] MEDS: D5W/0.45% NaCl w/20mEq KCL 1,000 ML 125 ML IV ×3 (00:05→08:26)
[2023-05-17] MEDS: PIPERACILLIN/TAZO 4.5 GM in 0.9 % SODIUM CHLORIDE 100 ML IV ×2 (01:08→08:26)
--- NOTE | 2023-05-17 03:24 | PC.NURSE ---
RECEIVED MORPHINE 4 MG IVP AT 1999 FOR PAIN 09/30. NO FURTHER C/O PAIN VOICED. DRSGS C/D/I TO LAP INCISIONS. SMALL AMTS OF SEROSANGUINOUS DRAINAGE IN THE CELESTINE DRAIN. SPOUSE AT BEDSIDE.
[2023-05-17 04:00] VITALS: BP 113/71; PULSE 82; RESP 18; TEMP 36.6; O2SAT 97; BMI 39.4
[2023-05-17 07:57] VITALS: BP 129/69; PULSE 74; RESP 20; TEMP 36.6; O2SAT 100
[2023-05-17 08:06] LABS: Basophils % 0.1 % (0.1-2.0); Eosinophils # 0.1 K/mm3 (0.0-0.4); Hematocrit 44.5 % (42.0-52.0); Hemoglobin 14.3 g/dL (14.1-18.0); Lymphocytes # 1.9 K/mm3 (0.7-4.5); Mean Corpuscular HGB Conc 32.2 g/dL (31.8-35.4); Mean Corpuscular Hemoglobin 28.1 pg (27.0-31.2); Mean Corpuscular Volume 87.2 fl (80-94); Mean Platelet Volume 8.4 fl (7.4-10.4); Monocytes # 0.5 K/mm3 (0.1-1.0); Monocytes % 6.9 % (1.7-9.3); Neutrophils # 4.6 K/mm3 (1.8-7.8); Neutrophils % 64.1 % (37.0-80.0); Platelet Count 250 K/mm3 (142-424); Red Cell Distribution Width 14.8 % (11.5-17.5); White Blood Count 7.2 K/mm3 (4.8-10.8)
[2023-05-17 08:09] LABS: Chloride 107 mmol/L (98-107); Potassium 3.8 mmoL/L (3.5-5.1); Sodium 136 mmol/L (136-145)
[2023-05-17 08:12] LABS: Alanine Aminotransferase 67 U/L (12-78); Albumin Level 3.4 g/dl (3.5-5.0); Alkaline Phosphatase 114 U/L (38-126); Anion Gap 4.8 mEq/L (5-15); Aspartate Amino Transferase 59 U/L (17-59); Bilirubin,Total 0.9 mg/dl (0.2-1.3); Blood Urea Nitrogen 11 mg/dl (9-20); Calcium 8.1 mg/dl (8.4-10.2); Carbon Dioxide 28 mmol/L (22.0-30.0); Creatinine Clearance Estimated 190 mL/min (50-200); Estimated Glomerular Filt Rate 95 ml/min (>60); GFR (African American) 116 ML/MIN (>60); Globulin 3.4 g/dL (1.3-3.2); Glucose 106 mg/dl (74-100); Total Protein,Serum 6.8 g/dl (6.3-8.2)
[2023-05-17] MEDS: FAMOTIDINE 20MG TABLET 20 MG PO (08:26)
[2023-05-17] MEDS: MORPHINE 2MG/ML SYRINGE 4 MG IV (08:31)
--- NOTE | 2023-05-17 09:48 | P.PN_ITS ---
Subjective *Date: 05/17/23 *Time: 09:48 Interval history: Patient did well overnight. Surgery has removed CELESTINE drain and cleared patient for discharge. Medical Exam Vital signs and Labs for Last 24 Hours: Vital Signs Temp Pulse Resp BP Pulse Ox O2 Del Method 05/17/23 07:57 97.8 F 74 20 129/69 100 Room Air 05/17/23 06:27 Room Air 05/17/23 04:00 97.9 F 82 18 113/71 97 Room Air 05/17/23 04:55 Room Air 05/17/23 02:54 Room Air 05/17/23 00:00 98.0 F 77 18 121/72 97 Room Air 05/17/23 01:00 Room Air 05/16/23 23:00 Room Air 05/16/23 20:00 99.0 F 81 18 130/76 97 Room Air 05/16/23 21:00 Room Air 05/16/23 20:00 97 Room Air 05/16/23 18:29 Room Air 05/16/23 17:00 Room Air 05/16/23 16:00 99.4 F 88 16 121/82 98 Room Air 05/16/23 15:00 Room Air 05/16/23 12:00 98.6 F 71 18 147/80 H 95 Room Air 05/16/23 12:26 Room Air 05/16/23 11:00 Room Air Intake and Output 05/16/23 05/17/23 05/17/23 23:59 07:59 15:59 Intake Total 120 / 2306 1476 / 2133 657 / 2133 Output Total 31 / 201 30 Balance 89 / 2105 1466 / 2103 637 / 2103 Intake: Intake, Oral Amount 120 / 240 0 / 120 120 / 120 Intake, Total IV Amount 1475 537 / 2012 D5W/0.45% NaCl w/20mEq KCL 1, 1276 / 1813 537 / 1813 000 ml @ 125 mls/hr IV .Q8H MARGARITO Rx#:[id number] Piperacillin/Tazo 4.5 gm In 0.9 200 / 200 % Sodium Chloride 100 ml @ 200 mls/hr IV Q6H MARGARITO Rx#:[id number] Output: Output, Urine Amount 1 / 1 0 / 0 Output, Drainage Amount 30 / 200 10 30 20 / 30 CELESTINE Drain 20 / 20 RUQ 30 / 200 Other: Number of Unmeasured Voids 1 1 Number of Bowel Movements 1 Weight 260 lb 5 oz Patient Weight 05/17/23 23:59 Weight 260 lb 5 oz Laboratory Results - last 24 hr 05/17/23 06:27: WBC 7.2 D, RBC 5.10, Hgb 14.3, Hct 44.5, MCV 87.2, MCH 28.1, MCHC 32.2, RDW 14.8, Plt Count 250, MPV 8.4, Neut % (Auto) 64.1, Lymph % (Auto) 27.0, [place] % (Auto) 6.9, Eos % (Auto) 2.0, Baso % (Auto) 0.1, Neut # (Auto) 4.6, Lymph # (Auto) 1.9, [place] # (Auto) 0.5, Eos # (Auto) 0.1, Baso # (Auto) 0.0, Sodium 136, Potassium 3.8, Chloride 107, Carbon Dioxide 28, Anion Gap 4.8 L, BUN 11, Creatinine 0.90 D, Estimated Creat Clear 190, Estimated GFR 95, Est GFR ( Amer) 116 D, Glucose 106 H, Calcium 8.1 L, Total Bilirubin 0.9, AST 59, ALT 67, Alkaline Phosphatase 114, Total Protein 6.8, Albumin 3.4 L, Globulin 3.4 H, Albumin/Globulin Ratio 1.0 L I & O for Labs for Last 24 Hours: Intake & Output 05/14/23 05/15/23 05/16/23 05/17/23 23:59 23:59 23:59 23:59 Intake Total 0 4300 / 4300 1411 / 2306 2133 / 2133 Output Total 176 / 176 201 / 201 Balance 0 4124 / 4124 1210 / 2105 210 / 2103 Weight 254 lb 7 oz 263 lb 14.4 oz 262 lb 6.413 oz 260 lb 5 oz Constitutional: Present no acute distress Respiratory: Present CTA bilaterally Cardiac: Present Reg Rate and Rhythm GI: Present soft and normal bowel sounds; Absent distention Extremities: Absent edema, clubbing or cyanosis Skin: Present intact Neuro: Present alert and awake Assessment and Plan *Assessment and plan (1) Acute cholecystitis: Status: Acute Category: Medical Code(s): K81.0 - Acute cholecystitis (2) Leukocytosis: Status: Acute Category: Medical Code(s): D72.829 - Elevated white blood cell count, unspecified (3) Epigastric abdominal pain: Status: Acute Category: Medical Code(s): R10.13 - Epigastric pain (4) S/P cholecystectomy: Status: Acute Category: Surgical Code(s): Z90.49 - Acquired absence of other specified parts of digestive tract Plan OK for discharge home today.
--- NOTE | 2023-05-17 12:55 | EXP.PHA.PN ---
Subjective *Date: 05/17/23 *Time: 12:55 Medical Exam Vital signs and Labs for Last 24 Hours: Vital Signs Temp Pulse Resp BP Pulse Ox O2 Del Method 05/17/23 10:19 Room Air 05/17/23 09:00 Room Air 05/17/23 08:00 Room Air 05/17/23 07:57 97.8 F 74 20 129/69 100 Room Air 05/17/23 06:27 Room Air 05/17/23 04:00 97.9 F 82 18 113/71 97 Room Air 05/17/23 04:55 Room Air 05/17/23 02:54 Room Air 05/17/23 00:00 98.0 F 77 18 121/72 97 Room Air 05/17/23 01:00 Room Air 05/16/23 23:00 Room Air 05/16/23 20:00 99.0 F 81 18 130/76 97 Room Air 05/16/23 21:00 Room Air 05/16/23 20:00 97 Room Air 05/16/23 18:29 Room Air 05/16/23 17:00 Room Air 05/16/23 16:00 99.4 F 88 16 121/82 98 Room Air 05/16/23 15:00 Room Air Intake and Output 05/16/23 05/17/23 05/17/23 23:59 07:59 15:59 Intake Total 120 / 2306 1476 / 2133 657 / 2133 Output Total 31 / 201 Balance 89 / 2105 1466 / 2103 637 / 2103 Intake: Intake, Oral Amount 120 / 240 0 / 120 120 / 120 Intake, Total IV Amount 1475 537 2012 D5W/0.45% NaCl w/20mEq KCL 1, 1276 / 1813 537 / 1813 000 ml @ 125 mls/hr IV .Q8H MARGARITO Rx#:[id number] Piperacillin/Tazo 4.5 gm In 0.9 200 / 200 % Sodium Chloride 100 ml @ 200 mls/hr IV Q6H MARGARITO Rx#:[id number] Output: Output, Urine Amount 1 / 1 0 / 0 0 / 0 Output, Drainage Amount 30 / 200 10 30 20 / 30 CELESTINE Drain 20 / 20 RUQ 30 / 200 10 / 10 Other: Number of Unmeasured Voids 1 1 1 Number of Bowel Movements 1 1 Weight 118.076 kg Patient Weight 05/17/23 23:59 Weight 118.076 kg Laboratory Results - last 24 hr 05/17/23 06:27: WBC 7.2 D, RBC 5.10, Hgb 14.3, Hct 44.5, MCV 87.2, MCH 28.1, MCHC 32.2, RDW 14.8, Plt Count 250, MPV 8.4, Neut % (Auto) 64.1, Lymph % (Auto) 27.0, [place] % (Auto) 6.9, Eos % (Auto) 2.0, Baso % (Auto) 0.1, Neut # (Auto) 4.6, Lymph # (Auto) 1.9, [place] # (Auto) 0.5, Eos # (Auto) 0.1, Baso # (Auto) 0.0, Sodium 136, Potassium 3.8, Chloride 107, Carbon Dioxide 28, Anion Gap 4.8 L, BUN 11, Creatinine 0.90 D, Estimated Creat Clear 190, Estimated GFR 95, Est GFR ( Amer) 116 D, Glucose 106 H, Calcium 8.1 L, Total Bilirubin 0.9, AST 59, ALT 67, Alkaline Phosphatase 114, Total Protein 6.8, Albumin 3.4 L, Globulin 3.4 H, Albumin/Globulin Ratio 1.0 L I & O for Labs for Last 24 Hours: Intake & Output 05/14/23 05/15/23 05/16/23 05/17/23 23:59 23:59 23:59 23:59 Intake Total 0 4300 / 4300 1411 / 2306 213 / 2133 Output Total 176 / 176 201 / 201 Balance 0 4124 / 4124 1210 / 2105 210 / 210 Weight 115.411 kg 119.703 kg 119.023 kg 118.076 kg The patient's infection will respond to the chosen ABx?: Yes Is the patient receiving the right drug, dose, and route?: Yes Could a more targeted ABx be ordered?: No
--- NOTE | 2023-05-20 12:49 | CARE MANAGER ---
Attempted to contact patient x2 related to hospital discharge. Left VM message. ERIC Gonzalez
--- NOTE | 2023-05-24 21:14 | P.DS_ITS ---
General Admission date:: 05/14/23 Discharge date: 05/17/23 HPI HPI HPI: Patient is a 37-year-old male. He had presented to [facility] office on 05/14/2023 with abdominal pain that began on 05/10/2023. He had nausea and vomiting. He did initially have some loose stools which had resolved. Describes severe pain in the epigastrium which doubles him over. He had been unable to eat. He was admitted for inpatient management as he was found to have a leukocytosis on outpatient labs. Surgical consultation was obtained for acute cholecystitis. He had a CT scan of the abdomen and pelvis performed which revealed distended gallbladder with wall thickening and right upper quadrant region inflammatory changes most consistent with severe acute cholecystitis in the proper clinical setting. He has an ultrasound pending. He is on Zosyn. Hospital Course Hospital Course Hospital Course: The patient was started on morphine, Zofran, and IV fluids. A CT scan was ordered. His white blood cell count was elevated and his CT showed probable cholecystitis. He was started on Zosyn and a right upper quadrant ultrasound was ordered. General surgery was consulted. The patient was seen by Dr. Vila who felt he would need an expeditious cholecystectomy. He was taken to the OR on 05/15/2023 and had a laparoscopic cholecystectomy with interoperative cholangiogram. He had severe necrotizing gangrenous acute cholecystitis essentially with virtually phlegmonous reaction in the right upper quadrant. The gallbladder neck was somewhat twisted and there was full-thickness necrosis. Due to the severely distorted anatomy, an interoperative cholangiogram was performed which preliminarily did not show any definitive common hepatic or common bile duct obstruction. By 05/16/2023, he felt better and complained only of abdominal soreness. He was tolerating clear liquids. By 05/17/2023, surgery had removed his CELESTINE drain and cleared him for discharge. He will follow-up with Dr. Vila. Exam Data for Last 24 hours Vital signs and Labs for Last 24 Hours: Temp Pulse Resp BP Pulse Ox O2 Del Method 97.8 F 74 20 129/69 100 Room Air 05/17/23 07:57 05/17/23 07:57 05/17/23 07:57 05/17/23 07:57 05/17/23 07:57 05/17/23 10:19 Narrative: Constitutional Constitutional: moderate distress (appears to be in pain) *Routine HEENT Exam Head: Present normocephalic and atraumatic Eye: Present EOMI and PERRL ENT: Present mucous membranes dry *Routine Neck Exam Neck: Present supple and full ROM *Routine Respiratory Exam Respiratory: Present CTA bilaterally *Routine Cardiovascular Exam Cardiovascular: Present RRR *Routine Abdominal Exam Abdominal: Present soft, normoactive bowel sounds and tenderness (epigastric area) *Routine Rectal Exam Rectal:: deferred *Routine Genitalia Exam Genitalia:: deferred *Routine Extremities Exam Extremities: Absent cyanosis, clubbing or edema *Routine Skin Exam Skin: Present intact; Absent erythema *Routine Neurological Exam Neurological: Present alert and oriented X3 DS: Diagnosis Discharge Diagnosis (1) Acute cholecystitis: Status: Acute Code(s): K81.0 - Acute cholecystitis (2) Leukocytosis: Status: Acute Code(s): D72.829 - Elevated white blood cell count, unspecified (3) Epigastric abdominal pain: Status: Acute Code(s): R10.13 - Epigastric pain (4) S/P cholecystectomy: Status: Acute Code(s): Z90.49 - Acquired absence of other specified parts of digestive tract Meds Home Medications and Allergies Home Medications Medication Instructions Recorded Confirmed Type hydrocodone 5 mg-acetaminophen 325 1 - 2 tab PO Q6H PRN Pain #21 tabs 05/17/23 Rx mg tablet New Prescriptions to Start Prescriptions: hydrocodone-acetaminophen Jay Vila Allergies Allergy/AdvReac Type Severity Reaction Status Date / Time No Known Allergies Allergy Verified 05/14/23 15:29 Discharge Plan Disposition Patient Disposition: Home, Self-Care Condition: Good Discharge Order Discharge Orders: Discharge Order (Routine); Ordered 05/17/23 Ordered By: Clinton Garcia Follow up Plan Follow up with: Clinton Garcia MD [Primary Care Provider] - 06/04/23 (Please call the office Friday to make your follow up appt. ) Jay Vila MD [Staff Physician] - 05/29/23 (Please call the office Friday to make your follow up appt. ) Prescriptions/Medication Reconciliation: New hydrocodone-acetaminophen 5-325 mg Tablet 1 - 2 tab PO Q6H PRN (Reason: Pain) Qty: 21 0RF Problem Reconciliation Problems Reviewed?: Yes Patient Discharge Instructions ACTIVITY: Limited activity DIET: continue same diet Patient Instructions: DI for Abdominal Pain-Adult, DI for Surgical Site Infection, DI for Cholecystitis, DI for Laparoscopic Cholecystectomy Providers Primary Care Provider: Clinton Garcia Admit Provider: Clinton Garcia Attending Provider: Clinton Garcia
== END 2023-05-17 11:14 | disposition home or self-care (01) | DRG 416 ==
PROVIDERS: Surgery; Admitting Provider Family Medicine; PCP Family Medicine; Visit Provider Family Medicine
PROC: 0FT44ZZ Resection of Gallbladder, Percutaneous Endoscopic Approach (ICD-10-PCS; CPT 47562; principal; 2023-05-15 13:00)
DX: K81.0 Acute cholecystitis (principal)
CPT/HCPCS: 47563; 36415; 74177; 74300; 76705; 80053; 82150; 83605; 83690; 85007; 85025; 87040; 87086; J3490; J2405; J2543; Q9967